=== PATIENT | female | born 1995 | race Caucasian/White ===

== ENCOUNTER → 2023-04-16 | Outpatient (CLI) | payer MEDICAID | END | disposition home or self-care (01) | LOC: LABWHC1 09:04 | PROVIDERS: ATTEND Obstetrics & Gynecology | DX: L68.0 Hirsutism (principal) | CPT/HCPCS: 36415; 82627; 83498; 84402; 84403 ==

== ENCOUNTER → 2023-04-16 | Outpatient (CLI) | payer MEDICAID ==
--- NOTE | 2023-04-16 08:58 | USB ---
Reason for Exam: Clinical finding. Technique: Method: Whole Breast Handheld. Findings: The whole breast of both breasts, the axilla of both breasts and the retroareolar of both breasts were scanned. A complete US of all four quadrants of both breasts, axilla, retro-areolar region were reviewed. No solid or cystic masses are identified.. Dense tissues present throughout. No axillary lymphadenopathy. Overall Assessment: Benign, BI-RAD 2 Management: Screening Mammogram of both breasts at age 40. Unless there is a clinical indication to start sooner. Further clinical management of patient's intermittent right breast pain. Patient can continue monthly self breast exams. Results were given to the patient verbally at the time of exam. Electronically signed and approved by: Camacho Fontenot M.D. Radiologist
== END | disposition home or self-care (01) ==
LOC: RADUSWWP 07:56
PROVIDERS: ATTEND Obstetrics & Gynecology
DX: N64.4 Mastodynia (principal)